=== PATIENT | female | born 1975 | race Asian ===

== ENCOUNTER → 2019-05-07 14:38 | Outpatient (CLI) | payer OTHER, SELFPAY ==
--- NOTE | 2019-05-07 | DI.CT.S_ITS ---
PROCEDURE: CT SOFT TISSUE NECK WO/W CON INDICATIONS: Chronic sialoadenitis TECHNIQUE: Before and after the administration of intravenous contrast, 2.0 mm axial sections acquired through the neck and down to the dasia. Additional 2.0 mm coronal and sagittal reformats were generated of the contrast enhanced images. For radiation dose reduction, the following was used: automated exposure control. COMPARISON: None. FINDINGS: Image quality: Excellent. Lymph nodes: No enlarged lymph nodes seen throughout the neck. Vessels: Visualized vasculature appears patent. Neck spaces: The oropharynx, nasopharynx, and pharynx demonstrate no mucosal lesions. The vocal cords, false vocal cords, pyriform sinuses, epiglottis, vallecula, and tongue base all appear normal. Extramucosal spaces appear unremarkable. Glands: The parotid and submandibular glands appear normal. Miscellaneous: There is a 12 mm AP by 21 mm transverse opacity in the right upper lobe. No priors are available for comparison. Superficial soft tissues appear normal. Bones: No suspicious bony lesions. Visualized sinuses and mastoids appear unremarkable. IMPRESSION: 1. No visualized stones within the submandibular gland or the expected location of the ducts. 2. Masslike opacity within the right upper lobe as above. No priors are available for comparison. Recommend correlation to recent infection or inflammation and short interval imaging followup after appropriate therapy to document resolution. Otherwise, consider further evaluation with biopsy or PET scan or very short interval imaging followup. Dictated by: Steffanie Huddleston M.D. on 05/07/2019 at 16:34 Approved by: Steffanie Huddleston M.D. on 05/07/2019 at 16:39
== END ==
PROVIDERS: Visit Provider Otolaryngology
DX: K11.23 Chronic sialoadenitis (principal)
CPT/HCPCS: 70492; Q9967

== ENCOUNTER → 2019-07-09 07:24 | Outpatient (CLI) | payer OTHER, SELFPAY ==
--- NOTE | 2019-07-09 08:28 | DI.CT.S_ITS ---
PROCEDURE: CT CHEST W CON INDICATIONS: LUNG MASS TECHNIQUE: After the administration of intravenous contrast, 5 mm thick sections acquired from the pulmonary apices to the posterior costophrenic angles. 1 mm axial lung, 5 mm thick coronal and sagittal reformats and 7 mm axial MIP were acquired. For radiation dose reduction, the following was used: automated exposure control, adjustment of mA and/or kV according to patient size. COMPARISON: [facility], CT, CT SOFT TISSUE NECK WO/W CON, 05/07/2019, 14:59. FINDINGS: Image quality: Excellent. Lungs and pleura: No acute air space opacities. At the posterior right apex a irregular ovoid mass with mild spiculation measures up to 1.8 x 2.3 cm in maximal AP and transverse dimensions. With reference to the prior CT from April this year the mass that measured 1.2 x 1.7 cm. No pleural effusions or pneumothorax. Central and peripheral airways are patent and normal in caliber. Mediastinum: Heart size is normal. No pericardial effusion. No mediastinal or hilar adenopathy by size criteria. Thoracic aorta and central pulmonary arteries are normal in size. Esophagus is normal in caliber. No hiatal hernia. Bones and chest wall: No suspicious bony lesions. No vertebral body compression fractures. No axillary or supraclavicular adenopathy by size criteria. Thyroid gland appears normal. Abdomen: Visualized upper abdominal solid organs appear normal. Upper abdominal bowel loops are normal in caliber. IMPRESSION: The right upper lobe spiculated lung mass appears to slightly enlarged with reference to the prior study from April this year. Given this change the likelihood of malignancy is considered high and therefore followup with a nuclear medicine PET CT for solitary pulmonary nodule is recommended. No metastatic disease found. Dictated by: Seth Rey M.D. on 07/09/2019 at 13:22 Approved by: Seth Rey M.D. on 07/09/2019 at 13:30
== END ==
PROVIDERS: PCP Family Medicine; Visit Provider Family Medicine
DX: R91.8 Other nonspecific abnormal finding of lung field (principal)
CPT/HCPCS: 71260; Q9967